=== PATIENT | male | born 1990 | race Caucasian/White ===

== ENCOUNTER 2024-06-12 06:19 | Emergency (ER) | payer SELFPAY ==
[~2024-06-12] VITALS: Ht 165.1 cm; Wt 115.0 kg
[2024-06-12 06:22] VITALS: TEMP 98.7; O2SAT 99
[2024-06-12] MEDS: TETANUS, DIPHTHERIA, PERTUSSIS VAC/PF 0.5ML (>10YR OLD) IM ONE (08:12)
[2024-06-12 08:13] VITALS: BP 126/86; PULSE 92; RESP 18; O2SAT 100
[2024-06-12] MEDS: KETOROLAC 30MG/ML VIAL IM ONE (08:13)
[2024-06-12] MEDS: ACETAMINOPHEN 325MG TABLET PO ONE (08:13)
[2024-06-12] MEDS: HYDROCODONE/ACETAMINOPHEN 5/325MG TABLET PO ONE (12:32)
[2024-06-12] MEDS ORDERED: LIDO700A30 TP (12:50)
[2024-06-12] MEDS ORDERED: NAPR-1486 MT (12:50)
== END 2024-06-12 13:10 | disposition home or self-care (01) ==
LOC: ER 06:19
DX: S00.83XA Contusion of other part of head, initial encounter (principal); S39.92XA Unspecified injury of lower back, initial encounter; J45.909 Unspecified asthma, uncomplicated; Z79.1 Long term (current) use of non-steroidal anti-inflammatories (NSAID); V43.52XA Car driver injured in collision with other type car in traffic accident, initial encounter; Y92.410 Unspecified street and highway as the place of occurrence of the external cause; Y92.89 Other specified places as the place of occurrence of the external cause; Y99.8 Other external cause status
CPT/HCPCS: 73130; 70450; 74176; 96372; 99285; J1885; Z7610